=== PATIENT | female | born 1960 ===

== ENCOUNTER 2022-09-23 11:56 | Inpatient (IN) | payer OTHER, SELFPAY ==
[2022-09-14 07:57] VITALS: BMI 33.9
[2022-09-20 12:32] VITALS: BMI 33.9
[2022-09-23] VITALS (20 sets, daily range): BP systolic 108–147; BP diastolic 48–97; PULSE 77–96; RESP 11–20; TEMP 36.2–36.8; O2SAT 93–99; BMI 33.9
--- NOTE | 2022-09-23 | DI.RAD.S_ITS ---
PROCEDURE: XR LUMBAR SPINE 2-3V INDICATIONS: TLIF L4-5 TECHNIQUE: 2 spot fluoroscopic intraoperative images. acquired. COMPARISON: [facility], [place], XR LUMBAR SPINE 2 OR 3 VIEWS, 07/21/2021, 9:34. FINDINGS: Spot fluoroscopic intraoperative images demonstrate postsurgical changes from posterior fixation at the L4-5 disc space level. Hardware components are in expected positions. IMPRESSION: Status post posterior spinal fusion at L4-5. Approved by: Jakob Lund M.D. on 09/23/2022 at 17:52
[2022-09-23] MEDS: LACTATED RINGERS 1,000 ML 42 ML IV (12:30)
[2022-09-23] MEDS: ACETAMINOPHEN 325 MG TABLET 650 MG PO (12:30)
--- NOTE | 2022-09-23 14:56 | P.OP_ITS ---
Operative Date/Time/Diagnoses Date of procedure: 09/23/22 Time of procedure: 15:00 Pre-op diagnosis: 1. L4-5, L5-S1 spinal stenosis with neurogenic claudication 2. Lumbar spondylosis with radiculopathy Post-op diagnosis: same Procedure & Clinicians Procedure: 1. L4-5 Postero-lateral and posterior interbody fusion 2. L4-5 interbody cage placement. 3. L4-5 decompressive laminectomy with bilateral facetecomies 4. L4-5 Posterior non-segmental instrumentation 5. L5-S1 left hemilaminectomy 6. [place] of bone marrow from iliac crest 7. Utilization of microsurgical technique and operating microscope Same procedure as scheduled: Yes Indications: Patient has been having chronic back pain and worsening lumbar radiculopathy and symptoms of neurogenic claudication. Patient failed multiple conservative management with worsening pain weakness and numbness in her lower extremity. Patient has been having difficulty performing activity of daily living. After discussing risks benefits of treatment options, patient elected proceed with surgery. Surgeon: Rubén Mchugh Supervisor Customer Complaint Service: Kitty Flowers Click Yes if Unassisted: No Anesthesia Type: General Operative Notes Closure Type: primary Specimen(s): none sent Prosthetic devices, grafts, tissues, transplants, or devices: Globus revolve screws, Rise cage Blood products transfused: none Procedure in detail: Patient was seen in the preoperative area. Risks and benefits of the surgery was discussed with the patient. Informed consent was obtained from the patient and placed in the chart. Surgical site was marked. Patient was taken to the operative room. General anesthesia was administered. Prophylactic antibiotic was given to the patient less than 30 min before the incision was made. Patient was placed into a prone position on the Vinayak table. Patient's back was then prepped and draped in the sterile fashion. Time-out was performed at this time. Using AP and lateral C-arm imaging the interval between L4-S1 was identified and marked on patient's back. A 2 inch incision 2 in from midline was made on the left side first. The fascia was incised in line with skin incision. Globus MARS retractors was placed inside the incision and docked onto the L4 lamina. Using microsurgical technique and operating microscope, a L4 laminectomy and L4-5 facetectomy was performed using a Kerrison rongeur. The laminectomy and facetectomy was performed in order to decompress patient's cauda equina as well as the nerve roots exiting at the L4-5 level. The disc space at L4-5 was identified. And a total diskectomy was performed at L4-5 level. The endplates were decorticated using a rasp and shaver. The total diskectomy and decortication was performed at L4-5 level in order to to accomplish a L4-5 fusion. The local bone from the laminectomy and facetectomy was saved for local bone grafting. After the total diskectomy and decortication was completed, Globus viacell bone graft material was combined with local bone that was harvested earlier. At this time, a separate skin is incision was made over the iliac crest. A Jamshidi needle was inserted into the iliac crest through a separate skin incision. 5 cc of bone marrow aspiration was obtained through the separate skin incision using a Jamshidi needle from the iliac crest. The bone marrow aspiration was combined with local bone and the via cell bone grafting material. The bone grafting material was placed into the L4-5 interbody space along with a expandable cage. The cage was expanded to its maximum height using the torque limiting screwdriver. During the process of the laminectomy, there is a small 2 mm dural defect identified on the dorsal aspect of the L4-5 interval. There was no active CSF leakage. A 1 cm x 1 cm DuraGen was placed on the dural defect to prevent CSF leakage. At this time the MARS retractor was redirected over the L5 lamina. Using microsurgical technique and operating microscope, a L5 heminectomy was performed using the Kerrison rongeur. The ligamentum flavum was also resected at the side of the hemilaminectomy for further decompression of the epidural space. At this time a mirror image incision was made on the right side. The fascia was incised in line with the skin incision. Globus MARS retractor was inserted and docked onto the L4-5 posterolateral gutter. Using the power drill, posterior- lateral decortication was performed at L4-5 level until bleeding cortical bone was identified. The remaining bone grafting material was placed into the L4-5 posterior lateral gutter he order to accomplish posterolateral fusion at the L4- 5 level. Using the double C-arm technique, pedicle screws were placed into the L4 and L5 pedicles bilaterally. This was done by placing the Jamshidi needle into the pedicles, then placing the guidewires over the Jamshidi needle, and finally placing the cannulated screws over the guidewires bilaterally. After the pedicle screws were placed, 2 titanium rods was locked into the heads of the pedicle screws using locking caps and torque limiting screwdriver. After all the hardware was placed, and confirmed with AP and lateral C-arm imaging, the wound was then irrigated with sterile normal saline and packed with Ray-Julian gauze for 3 min to accomplish hemostasis. After the gauze was removed the deep fascia was closed with #1 Vicryl suture. The subcutaneous layer was closed with 2-0 Vicryl. The skin was closed with skin freda. Patient tolerated the procedure well. There were no complications. The Operation could not have been safely performed without compromising the technical result or length of the procedure, without the assistance of a skilled surgical coordinator. The surgical coordinator was medically necessary for proper positioning, retraction and manipulation of instruments, proper exposure, surgical preparation, and manipulation of tissue. Complications: none Post-operative Condition: stable Disposition: PACU Plan for aftercare: Admit to inpatient hospital
--- NOTE | 2022-09-23 14:58 | PM.PREOP ---
Pre-operative Note COVID-19 Criteria for continued procedure: Expected advancement of disease process, Possibility delay results in more complex future surgery or treatment, Increased loss of function, Continuing or worsening of significant or severe pain, Deterioration of the patient's condition or overall health and Delay expected to result in less-positive ultimate med/surg outcome Interval Note History & Physical reviewed/Exam performed by Physician: Yes Changes to H&P: No
[2022-09-23] MEDS: CEFAZOLIN 2 GM/100 ML PREMIX 100 ML IV ×2 (15:06→22:40)
--- NOTE | 2022-09-23 15:32 | SUR.OPER ---
Prone on spine table, head in foam head support, padded chest and pelvic supports, gel pad at knees, lower legs supported by pillows; nipples, genitalia and toes free of pressure, arms secured on foam padded arm boards at <90 degrees abduction. Tape over blanket at thigh secured to table.
[2022-09-23] MEDS: BUPIVACAINE 0.25% (PF) 30 ML, EPINEPHrine 0.15 MG INJ (15:40)
[2022-09-23] MEDS: BUPIVACAINE LIPOSOME 266 MG/20 ML VIAL INJ (15:40)
[2022-09-23] MEDS: LORazepam 2 MG/ML INJ 0.5 MG IV (17:44)
[2022-09-23] MEDS: OXYCODONE IR 5 MG TABLET PO ×2 (17:53→18:30)
[2022-09-23] MEDS: hydrOXYzine pamoate 25 MG CAPSULE 50 MG PO (17:53)
[2022-09-23] MEDS: fentaNYL 100 MCG/2 ML INJ IV (18:20)
--- NOTE | 2022-09-23 19:08 | SUR.PHASEI ---
Spoke to Dr. Mchugh regarding Dural spinal precautions. Verified that patient is to lay flat until the morning and that she can sit 30 degrees to eat. Patient also has a post void residual of 517 ml after voiding [address] Mchugh okay to place preciado catheter for the night. Passed this along to Raiza, Ashok RN. Chava Vilchis RN
[2022-09-23] MEDS: HYDROMORPHONE 0.5 MG INJ IV ×2 (20:01→22:37)
[2022-09-23] MEDS: LACTATED RINGERS 1,000 ML 125 ML IV (22:40)
[2022-09-23] MEDS: DULOXETINE 30 MG CAPSULE 60 MG PO (22:41)
[2022-09-23] MEDS: PROPRANOLOL 10 MG TABLET 20 MG PO (22:41)
[2022-09-23] MEDS: CYCLOBENZAPRINE 10 MG TABLET 2.5 MG PO (22:42)
[2022-09-23] MEDS: PANTOPRAZOLE DR 40 MG TABLET PO (22:42)
[2022-09-23] MEDS: ONDANSETRON 4 MG/2 ML INJ IV (22:56)
[2022-09-24] VITALS (11 sets, daily range): BP systolic 102–159; BP diastolic 51–84; PULSE 73–94; RESP 16–20; TEMP 36.5–37.3; O2SAT 86–99
[2022-09-24] MEDS: OXYCODONE IR 10 MG TABLET PO ×5 (01:12→20:23)
[2022-09-24] MEDS: hydrOXYzine pamoate 25 MG CAPSULE PO (01:21)
--- NOTE | 2022-09-24 02:49 | PC.NURSE ---
0248: Pt arrived to room 210 via bed from PACU at 1930 on 09/23. Per report from PACU nurse, pt was only able to void 100 mL after bladder scan showed 500 mL and preciado catheter was placed in PACU. Upon pt's arrival to room 210, preciado catheter was in place and clear/yellow urine draining in bag. Pt was AAO x 4. There was no order for preciado catheter placement, urinary catheter management, and no documentation was found so primary RN (database report writer) and MACHO Hager (Coordinator) placed an order for Dr. Mchugh to [facility]. Pt is in no acute distress.
[2022-09-24] MEDS: CEFAZOLIN 2 GM/100 ML PREMIX 100 ML IV (05:27)
[2022-09-24] MEDS: HYDROMORPHONE 0.5 MG INJ IV ×3 (05:27→12:31)
[2022-09-24] MEDS: ONDANSETRON 4 MG/2 ML INJ IV ×2 (05:36→15:00)
--- NOTE | 2022-09-24 10:08 | PC.NURSE ---
Day shift: Pt did want her morning meds today. She said I take them later in the day. MOrning meds will be given when she wants to take them. Call light in reach. Will continue to monitor.
[2022-09-24] MEDS: MAGNESIUM HYDROXIDE 30 ML UDC PO (10:46)
[2022-09-24] MEDS: AMLODIPINE 5 MG TABLET 10 MG PO (10:47)
[2022-09-24] MEDS: PROPRANOLOL 10 MG TABLET 20 MG PO ×2 (10:47→20:03)
[2022-09-24] MEDS: hydroCHLOROthiazide 25 MG TABLET 12.5 MG PO (10:47)
[2022-09-24] MEDS: DULOXETINE 30 MG CAPSULE 60 MG PO ×2 (10:51→20:01)
[2022-09-24] MEDS: MULTIVITAMIN 1 TABLET 1 TAB PO (10:51)
[2022-09-24] MEDS: DOCUSATE 100 MG CAPSULE PO ×2 (10:51→20:03)
[2022-09-24] MEDS: lisinopriL 20 MG TABLET 40 MG PO (10:51)
[2022-09-24] MEDS: PANTOPRAZOLE DR 40 MG TABLET PO ×2 (10:51→20:03)
[2022-09-24] MEDS: COLESEVELAM 625 MG TABLET 1250 MG PO (10:56)
--- NOTE | 2022-09-24 11:17 | PM.PNPO.1 ---
Subjective Subjective Date Patient Seen: 09/24/22 Time Patient Seen: 11:18 Interval history: Patient is lying in bed comfortably this morning. She is aware that she had a dural tear in surgery, which was repaired. She has been supine all night and has no complaints. Pain has been well controlled, she notes that she had the most relief with Flexeril overnight. Denies fever, chills, nausea, vomiting. Exam Vital Signs (past 8 hours): - 09/24/22 05:45 09/24/22 05:32 09/24/22 06:48 Temperature 98.8 F Pulse Rate 94 H 80 Respiratory Rate 20 Blood Pressure 159/84 H Pulse Oximetry 93 99 88 L Oxygen Delivery Method Oxygen Flow Rate 0 2 0 09/24/22 06:50 09/24/22 09:09 09/24/22 09:40 Temperature 99.1 F Pulse Rate 79 Respiratory Rate 20 18 Blood Pressure 146/76 H Pulse Oximetry 96 99 95 Oxygen Delivery Method Nasal Cannula Oxygen Flow Rate 2 2 2 Oxygen Delivery Method Nasal Cannula Oxygen Flow Rate 2 Narrative Exam Narrative: Pleasant 61-year-old female. Awake, alert, and oriented. Intraoperative dressing clean, dry, and intact. Strength and sensation intact to bilateral lower extremities. Bilateral calves soft, compressible, nontender with no palpable cords or masses. FORMERLY [facility], 1928–1983 Medical History Anxiety Arthritis Chronic neck pain Complex posttraumatic stress disorder Depression DJD (degenerative joint disease) Fatty liver Fibromyalgia GERD (gastroesophageal reflux disease) Headache, migraine HTN (hypertension) Spinal stenosis Stomach ulcer Vertigo Surgical History History of esophagogastroduodenoscopy (EGD) History of hysterectomy Hx of cholecystectomy Hx of colonoscopy with polypectomy Hx of dilation and curettage Hx of tonsillectomy Hx of tubal ligation S/P Botox injection Social History household members: spouse Smoking Status: Never smoker alcohol intake: former Assessment & Plan Post-op Postoperative Procedures: Procedures Operation Date: 09/23/22 13:45 Actual Procedure Side Surgeon p L4-5 TLIF, Left L5-S1 hemilaminectomy Not Applicable Rubén Mchugh MD Postoperative day: 1 Postoperative status: doing well Postoperative status narrative: Patient is progressing as expected after TLIF yesterday. Has been maintained in supine position due to dural tear. Pain has been well controlled with medication. Postoperative plan narrative: Patient to be trialed with raising head of bed to 30? for 15 minutes then 60? for 15 minutes, monitor for symptoms. If she passes this trial she may work with physical therapy as tolerated. If she has symptoms such as headache or dizziness during these Russell she will be put back into supine position. Continue multimodal pain regimen. Continue spine precautions. Quality VTE Deep Vein Thrombosis/Pulmonary Embolism Present on Admission: No
--- NOTE | 2022-09-24 11:30 | PT.IIE ---
Current Diagnoses Spondylolisthesis, lumbar region (09/23/22) Spinal stenosis, lumbar region with neurogenic claudication (09/23/22) Surgery Performed Operation Date: 09/23/22 13:45 Actual Procedures p L4-5 TLIF, Left L5-S1 hemilaminectomy(Not Applicable) - Rubén Mchugh MD Surgical History (Last Reviewed 09/24/22 @ 11:21 by Kitty Flowers PA-C) History of esophagogastroduodenoscopy (EGD) History of hysterectomy Hx of cholecystectomy Hx of colonoscopy with polypectomy Hx of dilation and curettage Hx of tonsillectomy Hx of tubal ligation S/P Botox injection Medical History (Last Reviewed 09/24/22 @ 11:21 by Kitty Flowers PA-C) Anxiety Arthritis Chronic neck pain Complex posttraumatic stress disorder Depression DJD (degenerative joint disease) Fatty liver Fibromyalgia GERD (gastroesophageal reflux disease) Headache, migraine HTN (hypertension) Spinal stenosis Stomach ulcer Vertigo Physical Therapy Inpatient Evaluation/Re-Eval M1 PT/OT-IP Prior Functional Status Start: 09/24/22 12:58 Freq: NEEDED Status: Active Protocol: Document 09/24/22 11:30 AB (Rec: 09/24/22 13:17 AB [email or web address]) Medical Review Prior Functional Status Medical History Reviewed Yes Communication able to make needs known Mobility and Gait pt stated that she is modified independent with all mobilities and ambulation without AD but started using a 4WW since july due to back pain Social History Household Members spouse Living Arrangements House Number of Floors (Floors) One Floor Number of Stairs To Enter/Railing? 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; pt's friend will be staying with pt for 3-4 weeks to assist M2 PT-IP Current Condition Start: 09/24/22 12:58 Freq: NEEDED Status: Active Protocol: Document 09/24/22 11:30 AB (Rec: 09/24/22 13:17 AB [email or web address]) Physical Therapy Current Condition Current Condition Evaluation Date 09/24/22 Treatment Diagnosis s/p L4-5 fusion, L5S1 hemilami ; difficulty in walking Onset Date 09/23/22 M3 PT-IP Subjective Start: 09/24/22 12:58 Freq: NEEDED Status: Active Protocol: Document 09/24/22 11:30 AB (Rec: 09/24/22 13:17 AB [email or web address]) Subjective Physical Therapy Visit Type Type Initial Evaluation Visit Start Time 11:30 Visit Stop Time 12:35 Total Visit Minutes 65 Notes Pt with a dural tear. Talked with PA this morning ~ 1040am and stated that they just started dural tear protocol of having HOB elevated and to see if pt is going to be stable before pt can do PT. Checked with nurse ~ 1130 am and stated that pt without c/o with upright long sitting position and is cleared to do PT. Number of ASSISTANT CENTER MANAGER Visits 0 Physical Therapy Visit Comments Patient Comments agreeable to do PT Therapy Pain Assessment Pain When Pain Assessed At Rest Pain Present Pain Present Pain Reported Location back Intensity 3 Scale Used increases with mobility Pain Behaviors Facial Grimacing,Guarding, Restlessness Pain Management Techniques Distraction,Modification of Treatment,Re-positioning, Timing of Activity with Medications M4 PT-IP Mobility and Gait Start: 09/24/22 12:58 Freq: NEEDED Status: Active Protocol: Document 09/24/22 11:30 AB (Rec: 09/24/22 13:17 AB [email or web address]) PT-Bed Mobility Assessment Rolling Type of Rolling Log Rolling Level of Assist Standby Assistance Supine to Sit Supine to Sit Standby Assistance Sit to Supine Sit to Supine Standby Assistance PT-Transfer Assessment Sit to and From Stand Sit to and from Stand Contact Guard Assistance, Minimal Assistance,1 Person Assistance,Use of Upper Extremities Equipment Transfer Assistive Device Gait Belt,Front Wheeled Walker Orthotic/Prosthetic Devices or Brace: No Transfers Transfer Destination Chair Transfer Technique ambulated Transfer Ability Level of Assist Contact Guard Assistance, Minimal Assistance,1 Person Assistance,Use of Upper Extremities Comments Mobility Comments pt in bed with HOB elevated ~ 45 degrees. pt without c/o headache. elevated HOB to 60 deg. obtained PLOF and home set up. pt's friend in room with pt. educated pt and friend regarding back precautions and log roll bed mobility. pt tolerated 60 deg with HOB upright well without c/o headache, dizziness/ lightheadedness. BP checked: 159/86. pt has high anxiety and also stated that she has PTSD. pt easily gets agitated affecting following directions and safety awareness. pt completed supine to sit log roll SBA and max cues. able to sit on EOB SBA. BP checked : 163/93. completed sit to stand x 2 reps CGA to min A adn max cues for techniques. pt ambulated in room ~ 30 ft using FWW CGA to occasional min A. pt sat on the chair. caregiver training conducted. educated pt's friend on how to use safety belt and how to assist pt. pt's friend was able to put safety belt on and assisted pt with sit to stand and ambulation in room using FWW. pt sat on EOB. demonstrated sit<>supine log roll SBA with cues provided by pt's friend. pt can be impulsive but when cued for safety, can get agitated. pt completed sit to stand from EOB and transferred to chair using FWW with friend assisting. pt c/o increase back pain and wanting to go back to bed. pt's friend assisted pt back to bed. pt getting more agitated and was screaming at PT that she has PTSD and PT does not understand. tried to calm pt. pt log roll sit to supine SBA . positioned pt in bed. informed nurse of increase pain. call light and table placed within reach. Left pt with friend in the room. Gait Assessment Gait Gait Assistance Required: Contact Guard Assist,Minimum Assistance Distance (Feet) 30 Able to Maintain Weight Bearing Status Yes During Gait Assistive Devices Assistive Device Gait Belt,Front Wheeled Walker Orthotic/Prosthetic Devices or Brace: No Gait Deviations General Gait Pattern Antalgic,Decreased Stride Length,Decreased Feet Clearance,Step-to Gait Factors Limiting Gait Function Factors Limiting Gait Function Decreased Activity Tolerance, Decreased Strength,Difficulty Following Directions,Limited Range of Motion,Pain,Poor Balance,Poor Safety Awareness PT-Balance Assessment Sitting Balance and Reactions Static Sitting Balance Ability Normal Dynamic Sitting Balance Ability Good Standing Balance and Reactions Static Standing Balance Ability Fair Dynamic Standing Balance Ability Fair Device Used FWW M5 PT-IP Objective Assessments Start: 09/24/22 12:58 Freq: NEEDED Status: Active Protocol: Document 09/24/22 11:30 AB (Rec: 09/24/22 13:17 AB [email or web address]) Orientation Orientation/Cognition Level of Alertness Alert Orientation Name,Place,Situation Safety Awareness Decreased Safety Awareness Memory Description Short Term Impaired Gross Range of Motion Lower Extremity ROM Assessment Within Functional Limits Strength Lower Extremity Strength Assessment Bilaterally Impaired Hip 3+/5 Knee 4-/5 Coordination Assessment Gross Coordination Gross Coordination WNL Sensation Assessment Sensation Gross Sensation WNL Muscle Tone Muscle Tone WNL Yes M6 PT-IP Treatment Start: 09/24/22 12:58 Freq: NEEDED Status: Active Protocol: Document 09/24/22 11:30 AB (Rec: 09/24/22 13:17 AB [email or web address]) Physical Therapy Treatment Education Education Provided Precautions,Weight Bearing Status,Post-Op Packet,Safety M7 PT-IP Assessment and Plan Start: 09/24/22 12:58 Freq: NEEDED Status: Active Protocol: Document 09/24/22 11:30 AB (Rec: 09/24/22 13:17 AB [email or web address]) PT Summary Assessment and Plan Potential Rehabilitation Potential Fair Status of Condition at Evaluation Evolving Summary Impairments Pain,ROM,Strength,Balance, Coordination,Sensation,Tone, Cognition,Bed Mobility, Transfers,Gait,Activity Tolerance Assessment Summary pt s/p L4-5 fusion and L5S1 hemilaminectomy POD 1. pt requiring CGA to min A with mobility using FWW and has c/o increase pain with mobility affecting safety awareness. Caregiver training conducted and pt's friend able to assist pt safely. pt may go home when medically stable. Goals Bed Mobility Goal Independent Transfer Goal Independent,Front Wheeled Walker Gait Goal Independent,Front Wheel Walker Gait Distance 250 Days to Meet Goals 5 Frequency of Treatment Frequency Of Treatment Twice a Day Treatment Plan Physical Therapy Treatment Plan Bed Mobility Training,Transfer Training,Gait Training, Therapeutic Exercise,Balance Retraining,Post Op Education, Discharge Planning,Hot or Cold Pack,Neuromuscular Re-ed, Coordination Retraining,Manual Therapy Precautions Lumbar Precautions Log Roll,No Twisting,Limit Bending,Lifting Restriction of 10 lbs,Gait Belt above Incisional Area Recommendations To Nursing Amount of Assist Needed 1 Person Assist Discharge Recommendations PT Discharge Recommendations Home with Assistance Transportation Needs at Discharge Private Vehicle
[2022-09-24] MEDS: CYCLOBENZAPRINE 10 MG TABLET 2.5 MG PO ×2 (12:31→20:01)
--- NOTE | 2022-09-24 13:55 | CM.DANOTE ---
Initial Discharge Assessment Note: Met with patient, introduced self and role. Payer: [facility] [employer] and self pay PCP: 61 year old admitted yesterday for TLIF, she sustained a dural tear. She is comfortable during our interaction. 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 Her friend Olivia will stay with her for a month to assist her. Plan: Discharge when medically cleared, friend Olivia to transport. SEJ Discharge Planning/Care Management CM Discharge Assessment Start: 09/24/22 12:20 Freq: Status: Active Protocol: Document 09/24/22 12:20 SJ (Rec: 09/24/22 12:21 [id number]) Discharge Planning Assessment Assigned Interpersonal Communications Professor Berenice Pan RN/DCP Advance Directives? No History Provided By Patient,Medical Record Prior Living Arrangements House Household Members spouse Type of transporation used prior to Drives own vehicle admit Independent with ADL's Yes Is patient alert and oriented? Yes Caregiver for Another No Discharge Plan Home Referrals Initiated None needed Review Status In Process Next Review Type Continued Stay Review Pre-Anesthesia Assessment Start: 09/14/22 07:57 Freq: Status: Complete Protocol: Document 09/14/22 07:57 CAB (Rec: 09/14/22 09:19 CAB [id number]) Pre-Anesthesia Assessment PAC Comment Unable to reach pt for scheduled phone assessment, vm not set up. Surgeon visit only source of medical/ medication history, limited chart review Patient Information Reviewed Via Chart Review Diagnostic Results BMP/CMP,CBC,EKG Comment Outside labs/EKG scanned Primary Care Provider Letty Almeida Seen Specialist in Last 12 Months Yes Specialist Seen Orthopedist Primary Language Cambodian Tanbark Peeler Required No Height 159.39 cm Weight 86.183 kg Body Mass Index (BMI) 33.9 Barriers to Learning None Anesthesia Review Requested No Furnace Keeper No alcohol intake current Alcohol Intake Frequency Other: Occasional Smoking Status Unknown if ever smoked Pain Present Pain Reported Musculoskeletal Symptoms Abnormal Gait,Back Pain, Difficulty Walking,Myalgias, Numbness,Radiating Pain into Limb,Tingling Patient is completely paralyzed or No completely immobile Mental Status Oriented to own ability Hx Sleep Apnea No Currently Taking a Beta Violette No Anti-Coagulant Therapy No Cardiac Testing No Hx Pacemaker/ICD No Pacemaker Rep Required? No Cardiac Clearance Received Not Applicable Urinary Catheter Present No Hx Urinary Self Catheterization No Diabetes No HgbA1C 509 Date 07/22/22 Patient No Lactating No Marital Status Unknown Patient Discharge Plan Description Return Home Document 09/20/22 12:32 CAB (Rec: 09/20/22 13:36 CAB [id number]) Pre-Anesthesia Assessment Patient Information Reviewed Via Chart Review Diagnostic Results BMP/CMP,CBC,EKG Comment Outside labs/EKG scanned Primary Care Provider Letty Almeida Seen Specialist in Last 12 Months Yes Specialist Seen Orthopedist,Other Comment Nerology, GI Primary Language Cambodian Tanbark Peeler Required No Height 159.39 cm Weight 86.183 kg Body Mass Index (BMI) 33.9 Hearing Ability Normal Visual Assist Glasses Dentition Type Teeth, Natural Present Barriers to Learning None Hx Anesthesia Reactions No Hx Family Anesthesia Reaction No Hx Malignant Hyperthermia No Hx Blood Transfusions No Anesthesia Review Requested No Furnace Keeper No alcohol intake former Smoking Status Never smoker Substance Use Type marijuana Comment Pt advised not to smoke marijuana 24 hours prior Pain Present Pain Reported Musculoskeletal Symptoms Abnormal Gait,Back Pain, Difficulty Walking,Myalgias, Neck Pain,Numbness,Radiating Pain into Limb,Tingling History of Falling (Recent or History of No ) Patient is completely paralyzed or No completely immobile Prosthesis or Orthotic Device Front Wheel Walker Mental Status Oriented to own ability Is patient on oxygen? No Does patient have JIMENEZ/SOB No Hx Sleep Apnea No Currently Taking a Beta Violette No Can You Climb a Flight of Stairs Without No SOB Hx Chest Pain No Hx SOB No Hx Syncope or Dizziness No Anti-Coagulant Therapy No Has a Insulation Cupola Operator No Cardiac Testing No Hx Pacemaker/ICD No Pacemaker Rep Required? No Cardiac Clearance Received Not Applicable Dysphagia GERD diet Gastrointestinal Symptoms Reflux Urinary Catheter Present No Hx Urinary Self Catheterization No Diabetes No HgbA1C 5.9 Date 07/22/22 Patient No Lactating No Hx Drug Resistant Organism No Presence of External or Internal Medical No Devices Have you had any close contact with No someone diagnosed with COVID-19? Received a COVID vaccine? Yes Received all doses? Yes Marital Status Lives With spouse Current Living Arrangements House Number of Floors (Floors) One Floor Support System Friend(s),Spouse Comment Friend will stay with pt to assist with care at DC Does the Patient Have Assistance After Yes Surgery Patient Discharge Plan Description Return Home Comment Pt advised overnight length of stay per surgeon Feels Safe in Current Environment Yes Been Physically Hurt or Threatened By a No Person in Current Environment Do you have thoughts of harming yourself None or others? Are you currently considering suicide? No Do you have a plan to hurt yourself or No Plan others? Do You Have Any Spiritual Beliefs That No May Affect Your HC Choices? Do You Have Any Cultural Practices That No May Affect Your HC Choices? Comment Agnostic Who Can We Speak to About Patient's Care Family, friends Identifying Code for Release of Patient Declines to issue Information Health Care Proxy/Next of Kin Jesse () Health Care Proxy Emergency Contact Name Jesse () Emergency Contact Advance Directives? No Power of Integration Project Manager No PAC Instructions Durable medical equipment, Medications to take/avoid, Nasal antibiotic,No ETOH/ petroleum product on skin DOS, NPO,Post-op transportation, Sensory aids,Sturdy shoes/ comfortable clothes,Do not bring valuables and remove jewelry
--- NOTE | 2022-09-24 14:35 | PT.IPTN ---
Current Diagnoses Spondylolisthesis, lumbar region (09/23/22) Spinal stenosis, lumbar region with neurogenic claudication (09/23/22) Surgery Performed Operation Date: 09/23/22 13:45 Actual Procedures p L4-5 TLIF, Left L5-S1 hemilaminectomy(Not Applicable) - Rubén Mchugh MD Physical Therapy Treatment Note M2 PT-IP Current Condition Start: 09/24/22 12:58 Freq: NEEDED Status: Active Protocol: Document 09/24/22 11:30 AB (Rec: 09/24/22 13:17 AB [email or web address]) Physical Therapy Current Condition Current Condition Evaluation Date 09/24/22 Treatment Diagnosis s/p L4-5 fusion, L5S1 hemilami ; difficulty in walking Onset Date 09/23/22 M3 PT-IP Subjective Start: 09/24/22 12:58 Freq: NEEDED Status: Active Protocol: Document 09/24/22 14:35 AB (Rec: 09/24/22 15:11 AB [email or web address]) Subjective Physical Therapy Visit Type Type Treatment Note Visit Start Time 14:35 Visit Stop Time 14:55 Total Visit Minutes 20 Number of CUFF SETTER LOCKSTITCH Visits 0 Physical Therapy Visit Comments Patient Comments agreeable to do PT Therapy Pain Assessment Pain When Pain Assessed At Rest Pain Present Pain Present Pain Reported Location back Intensity 3 Scale Used Numeric (0 - 10) Pain Management Techniques Apply Cold,Distraction, Modification of Treatment,Re- positioning,Timing of Activity with Medications M4 PT-IP Mobility and Gait Start: 09/24/22 12:58 Freq: NEEDED Status: Active Protocol: Document 09/24/22 14:35 AB (Rec: 09/24/22 15:11 AB [email or web address]) PT-Bed Mobility Assessment Rolling Type of Rolling Log Rolling Level of Assist Standby Assistance Supine to Sit Supine to Sit Standby Assistance Sit to Supine Sit to Supine Standby Assistance PT-Transfer Assessment Sit to and From Stand Sit to and from Stand Standby Assistance,1 Person Assistance,Use of Upper Extremities Equipment Transfer Assistive Device Gait Belt,Front Wheeled Walker Orthotic/Prosthetic Devices or Brace: No Comments Mobility Comments checked on pt ~ 207 pm and stated that she just had her pain meds and wants to wait for a few minutes. checked back on pt after ~ 30 min and agreed to do PT. completed supine to sit log roll SBA. pt can be impulsive and cues for back precautions and safety provided. completed sit to stand SBA and ambulated in the hallway using FWW ~ 125 ft SBA to occasional CGA. pt ambulated back to the room and requested to go back to bed. completed sit to supine SBA. positioned in bed. call light and table placed within reach . ice pack provided. Gait Assessment Gait Gait Assistance Required: Standby Assistance Distance (Feet) 150 Able to Maintain Weight Bearing Status Yes During Gait Assistive Devices Assistive Device Gait Belt,Front Wheeled Walker Orthotic/Prosthetic Devices or Brace: No Gait Deviations General Gait Pattern Decreased Stride Length, Decreased Feet Clearance Factors Limiting Gait Function Factors Limiting Gait Function Decreased Activity Tolerance, Decreased Strength,Limited Range of Motion,Pain,Poor Balance,Poor Safety Awareness M5 PT-IP Objective Assessments Start: 09/24/22 12:58 Freq: NEEDED Status: Active Protocol: Document 09/24/22 11:30 AB (Rec: 09/24/22 13:17 AB [email or web address]) Orientation Orientation/Cognition Level of Alertness Alert Orientation Name,Place,Situation Safety Awareness Decreased Safety Awareness Memory Description Short Term Impaired Gross Range of Motion Lower Extremity ROM Assessment Within Functional Limits Strength Lower Extremity Strength Assessment Bilaterally Impaired Hip 3+/5 Knee 4-/5 Coordination Assessment Gross Coordination Gross Coordination WNL Sensation Assessment Sensation Gross Sensation WNL Muscle Tone Muscle Tone WNL Yes M6 PT-IP Treatment Start: 09/24/22 12:58 Freq: NEEDED Status: Active Protocol: Document 09/24/22 14:35 AB (Rec: 09/24/22 15:11 AB [email or web address]) Physical Therapy Treatment Education Education Provided Precautions,Safety M7 PT-IP Assessment and Plan Start: 09/24/22 12:58 Freq: NEEDED Status: Active Protocol: Document 09/24/22 14:35 AB (Rec: 09/24/22 15:11 AB [email or web address]) PT Summary Assessment and Plan Potential Rehabilitation Potential Good Summary Impairments Pain,ROM,Strength,Balance, Coordination,Sensation,Tone, Cognition,Bed Mobility, Transfers,Gait,Activity Tolerance Progress Towards Goals Slow Progress due to Pain,Slow Progress due to Activity Tolerance Assessment Summary pt progressing with mobility and ambulated using FWW ~ 125 ft SBA to CGA. caregiver training was conducted this morning and pt's friend was able to assist pt safely. pt plans to go home and friend to assist her as needed. pt may go home when medically stable . Goals Bed Mobility Goal Independent Transfer Goal Independent,Front Wheeled Walker Gait Goal Independent,Front Wheel Walker Gait Distance 250 Days to Meet Goals 5 Frequency of Treatment Frequency Of Treatment Twice a Day Treatment Plan Physical Therapy Treatment Plan Bed Mobility Training,Transfer Training,Gait Training, Therapeutic Exercise,Balance Retraining,Post Op Education, Discharge Planning,Hot or Cold Pack,Neuromuscular Re-ed, Coordination Retraining,Manual Therapy Precautions Lumbar Precautions Log Roll,No Twisting,Limit Bending,Lifting Restriction of 10 lbs,Gait Belt above Incisional Area Recommendations To Nursing Amount of Assist Needed 1 Person Assist Discharge Recommendations PT Discharge Recommendations Home with Assistance Transportation Needs at Discharge Private Vehicle
[2022-09-24] MEDS: MAG HYDROX/ALUM/SIMETH 30 ML UDC PO (17:52)
[2022-09-24] MEDS: ACETAMINOPHEN 325 MG TABLET 650 MG PO (20:02)
[2022-09-24] MEDS: SENNOSIDES 8.6 MG TABLET 17.2 MG PO (20:03)
[2022-09-25] MEDS: OXYCODONE IR 10 MG TABLET PO ×2 (00:25→11:12)
[2022-09-25 05:11] VITALS: BP 99/48; PULSE 69; RESP 18; TEMP 36.9; O2SAT 94
--- NOTE | 2022-09-25 07:25 | PC.NURSE ---
a/o, voices needs. min assist/1pa ADL assist and bed mobility. following proper log roll procedure. 50c piece size sero-sang drainage on low back dressing. + CSM to bilat feet. ice packs offered thru the NOC. pain controlled w/ PRN oxycodone/flexeril. reported pain from bed being uncomfortable. sat up in chair for a bit while her bed was switched out w/ a [place] bed. patient reports much improvement. preciado patent, draining clear yellow. tried to go to the bathroom for BM, unable to at this time. encouraged to use IS, to help w/ pain control and anxiety. call light w/in reach. instructed to call before getting up, as she can become dizzy at times. bed alarm on while in bed.
[2022-09-25 08:25] VITALS: BP 131/73; PULSE 75; RESP 16; TEMP 36.8; O2SAT 93
--- NOTE | 2022-09-25 08:38 | PM.PN.1 ---
Exam Vital Signs (past 8 hours): - 09/25/22 05:11 Temperature 98.5 F Pulse Rate 69 Respiratory Rate 18 Blood Pressure 99/48 L Pulse Oximetry 94 Oxygen Flow Rate 0 Oxygen Delivery Method Nasal Cannula Oxygen Flow Rate 0 PFSH Medical History Anxiety Arthritis Chronic neck pain Complex posttraumatic stress disorder Depression DJD (degenerative joint disease) Fatty liver Fibromyalgia GERD (gastroesophageal reflux disease) Headache, migraine HTN (hypertension) Spinal stenosis Stomach ulcer Vertigo Surgical History History of esophagogastroduodenoscopy (EGD) History of hysterectomy Hx of cholecystectomy Hx of colonoscopy with polypectomy Hx of dilation and curettage Hx of tonsillectomy Hx of tubal ligation S/P Botox injection Social History household members: spouse Smoking Status: Never smoker alcohol intake: former Assessment & Plan Assessment & Plan narrative: POD#2 s/p lumbar fusion L4-5. Doing well. On exam, neuro intact, dressing clean and dry. Will d/c today to home after cleared by PT/OT. Quality VTE Deep Vein Thrombosis/Pulmonary Embolism Present on Admission: No
[2022-09-25] MEDS: AMLODIPINE 5 MG TABLET 10 MG PO (08:40)
[2022-09-25] MEDS: MULTIVITAMIN 1 TABLET 1 TAB PO (08:40)
[2022-09-25] MEDS: PANTOPRAZOLE DR 40 MG TABLET PO (08:40)
[2022-09-25 08:45] VITALS: BP 131/73; PULSE 74
[2022-09-25] MEDS: DOCUSATE 100 MG CAPSULE PO (08:45)
[2022-09-25] MEDS: PROPRANOLOL 10 MG TABLET 20 MG PO (08:45)
[2022-09-25] MEDS: lisinopriL 20 MG TABLET 40 MG PO (08:45)
[2022-09-25] MEDS: DULOXETINE 30 MG CAPSULE 60 MG PO (08:45)
[2022-09-25] MEDS: hydroCHLOROthiazide 25 MG TABLET 12.5 MG PO (08:46)
[2022-09-25] MEDS: COLESEVELAM 625 MG TABLET 1250 MG PO (08:54)
[2022-09-25 09:00] VITALS: O2SAT 96
--- NOTE | 2022-09-25 10:55 | PT.IPTN ---
Current Diagnoses Spondylolisthesis, lumbar region (09/23/22) Spinal stenosis, lumbar region with neurogenic claudication (09/23/22) Surgery Performed Operation Date: 09/23/22 13:45 Actual Procedures p L4-5 TLIF, Left L5-S1 hemilaminectomy(Not Applicable) - Rubén Mchugh MD Physical Therapy Treatment Note M2 PT-IP Current Condition Start: 09/24/22 12:58 Freq: NEEDED Status: Active Protocol: Document 09/24/22 11:30 AB (Rec: 09/24/22 13:17 AB [email or web address]) Physical Therapy Current Condition Current Condition Evaluation Date 09/24/22 Treatment Diagnosis s/p L4-5 fusion, L5S1 hemilami ; difficulty in walking Onset Date 09/23/22 M3 PT-IP Subjective Start: 09/24/22 12:58 Freq: NEEDED Status: Active Protocol: Document 09/25/22 10:45 MB (Rec: 09/25/22 10:55 MB [id number]) Subjective Physical Therapy Visit Type Type Treatment Note Visit Start Time 10:25 Visit Stop Time 10:45 Total Visit Minutes 20 Physical Therapy Visit Comments Patient Comments I'm ready now. Therapy Pain Assessment Pain When Pain Assessed During Mobility Pain Present Pain Present Pain Reported Location back Intensity 2 Scale Used Quiroz-Lubin (Faces) Description Aching Pain Behaviors Facial Grimacing Pain Management Techniques Distraction,Modification of Treatment,Re-positioning, Timing of Activity with Medications M4 PT-IP Mobility and Gait Start: 09/24/22 12:58 Freq: NEEDED Status: Active Protocol: Document 09/25/22 10:45 MB (Rec: 09/25/22 10:55 MB [id number]) PT-Bed Mobility Assessment Rolling Type of Rolling Log Rolling Level of Assist Independent Supine to Sit Supine to Sit Independent Scooting Scooting to Edge of Bed Independent PT-Transfer Assessment Sit to and From Stand Sit to and from Stand Standby Assistance,1 Person Assistance,Use of Upper Extremities Equipment Transfer Assistive Device Gait Belt Comments Mobility Comments Pt requires cues to keep 2WW with her for transferring from bed, to commode, to chair Gait Assessment Gait Gait Assistance Required: Standby Assistance Distance (Feet) 150 Able to Maintain Weight Bearing Status Yes During Gait Assistive Devices Assistive Device Gait Belt,Front Wheeled Walker Gait Deviations General Gait Pattern Antalgic Factors Limiting Gait Function Factors Limiting Gait Function Pain,Poor Balance,Poor Safety Awareness Comments Gait Comments Pt reports history of basilar migraines and imbalance d/t concussion. She states flexeril she took this a.m. also makes her unsteady. She has slow gait and requires SBA for balance. Stair Climbing Assessment Comments Stair Climbing Comments Pt has ramped entrance she will use at home PT-Balance Assessment Sitting Balance and Reactions Static Sitting Balance Ability Good Dynamic Sitting Balance Ability Fair Standing Balance and Reactions Static Standing Balance Ability Fair Dynamic Standing Balance Ability Fair Device Used 2WW M5 PT-IP Objective Assessments Start: 09/24/22 12:58 Freq: NEEDED Status: Active Protocol: Document 09/24/22 11:30 AB (Rec: 09/24/22 13:17 AB [id number]) Orientation Orientation/Cognition Level of Alertness Alert Orientation Name,Place,Situation Safety Awareness Decreased Safety Awareness Memory Description Short Term Impaired Gross Range of Motion Lower Extremity ROM Assessment Within Functional Limits Strength Lower Extremity Strength Assessment Bilaterally Impaired Hip 3+/5 Knee 4-/5 Coordination Assessment Gross Coordination Gross Coordination WNL Sensation Assessment Sensation Gross Sensation WNL Muscle Tone Muscle Tone WNL Yes M6 PT-IP Treatment Start: 09/24/22 12:58 Freq: NEEDED Status: Active Protocol: Document 09/25/22 10:45 MB (Rec: 09/25/22 10:49 MB [id number]) Physical Therapy Treatment Education Education Provided Precautions,Safety M7 PT-IP Assessment and Plan Start: 09/24/22 12:58 Freq: NEEDED Status: Active Protocol: Document 09/25/22 10:45 MB (Rec: 09/25/22 10:55 MB [id number]) PT Summary Assessment and Plan Potential Rehabilitation Potential Good Status of Condition at Evaluation Evolving Summary Impairments Pain Progress Towards Goals Progressing Toward Goals Assessment Summary Pt is a 61 y/o female who requires SBA for transfers and gait today. She does repeat herself occ with conversation and states the flexeril makes her imbalanced and affects her cognition. She will d/c home with and her friend who is coming to look after her.
--- NOTE | 2022-09-25 11:19 | CM.DPNOTE ---
Discharge Planning Note: Discharge orders written, patient is anxious to return home. Her friend Olivia in room and will provide transport and be able to stay with patient for a month to help with care. Patient has disabled at home. Plan: Discharge home with Olivia.
[2022-09-25 12:46] VITALS: BP 116/54; PULSE 60; RESP 19; TEMP 36.3; O2SAT 97
--- NOTE | 2022-09-25 12:54 | PC.NURSE ---
[id number] Discharge note: Patient discharged home per MD order and cleared by PT. Up OOB ambulating, voided post preciado removal, pain adequately controlled with oral medications. Discussed importance of mobility precautions, dressing care, and F/U with Dr. Mchugh. Patient verbalized understanding of instructions. HOme via private vehicle accompanied by friend. Rx's on hand.
== END 2022-09-25 13:00 | disposition home or self-care (01) | DRG 454 ==
PROVIDERS: Admitting Provider Orthopaedic Surgery Orthopaedic Surgery of the Spine; Referring Provider Orthopaedic Surgery Orthopaedic Surgery of the Spine; Visit Provider Orthopaedic Surgery Orthopaedic Surgery of the Spine
PROC: 0SG00AJ Fusion of Lumbar Vertebral Joint with Interbody Fusion Device, Posterior Approach, Anterior Column, Open Approach (ICD-10-PCS; principal; 2022-09-23 13:45)
DX: M48.062 Spinal stenosis, lumbar region with neurogenic claudication (principal); G97.41 Accidental puncture or laceration of dura during a procedure; M47.26 Other spondylosis with radiculopathy, lumbar region; M48.07 Spinal stenosis, lumbosacral region; Z20.822 Contact with and (suspected) exposure to COVID-19
CPT/HCPCS: 36415; 72100; 76000; 94760; 97116; 97162; 97530; C1713; C9290; J0171; J0690; J1100; J1170; J2060; J2250; J2405; J2704; J3010